=== PATIENT | male | born 1965 | race Caucasian/White ===

== ENCOUNTER 2025-06-03 07:54 | Outpatient (CLI) | payer BC, SELFPAY ==
--- NOTE | ~2025-06-03 | XR_ITS ---
Left Hand Technique: PA, oblique, and lateral views were obtained. Clinical History: Chronic pain Findings: No acute fracture or dislocation is seen. Osseous alignment is anatomic. There is advanced degenerative change of the triscaphe joint. There is moderate degenerative change of the third MCP ernestina int. Soft tissues are unremarkable. Impression: Degenerative changes, as above. Reviewed, dictated and finalized at location M. Impression: Degenerative changes, as above.
--- NOTE | ~2025-06-03 | XR_ITS ---
Right Hand Technique: PA, oblique, and lateral views were obtained. Clinical History: Pain Findings: No acute fracture or dislocation is seen. Osseous alignment is anatomic. There is advanced degenerative changes at triscaphe joint. There is moderate degenerative change of the third MCP joint . Soft tissues are unremarkable. Impression: Degenerative changes, as above. Reviewed, dictated and finalized at location . Impression: Degenerative changes, as above.
--- OUTSIDE RECORDS SUMMARY | 2025-06-03 08:02 | XMS_ITS | Continuity of Care Document ---
Author Organization [facility] Address [address] [place] [address] Phone Care Team Providers Care Canal Driver Name Role Phone Rudi Joseph MD Unavailable Unavailable Procedures Procedure Date Office/outpatient Visit, [facility] Remove Foreign Body From Eye Advance Directives Directive Yes / No Effective Date File Name No Information Encounters Encounter Description Practice Location Reason(s) For Visit Diagnoses Date Provider Providers Copied on Encounter Office/outpat ient Visit, [facility], [address], [place], [place], [id number], [place] tel:[phone] SEC Pro CHAVEZ Professional No Information 1 Jake Grijalva. [address] [facility] [place], [id number], [place]. tel:[phone] Referring Provider: Markos Rivero OD, [address], [address]. tel:[phone] Family History Family Member Type Diagnosis Age At Onset No Information Payers Payer name Insurance type Covered alliance party ID Authoriza tion(s) No Information Social History Type Description Quantity Date Captured Comments Sex Male Smoking Status No Information Chief Complaint And Reason For Visit No Information Reason For Referral Reason For Referral No Information History Of Present Illness Encounter Date Complaint History Of Prese nt Illness No Information Functional Status Date Functional Assessmen t No Information Instructions Date Instruction Additional Infor mation No Information Assessments Type Assessment Date No Information Patient Care Teams Name Effective Dates (start - stop) Status Members No Information
--- OUTSIDE RECORDS SUMMARY | 2025-06-03 08:02 | XMS_ITS | Clinical Summary ---
Author Organization [facility] [address] Address [address] [place] [address] Care Team Providers Care Dietitian Chief Name Role Phone Thiago Tse MD Unavailable [phone] Sybil Whitaker NP Unavailable [phone] Ghada Leon Primary Care Provider + Allergies No known active allergies Medications fenofibrate (TRIGLIDE) 160 mg tablet Take 1 tablet (160 mg total) by mouth daily 2 Active omeprazole (PriLOSEC) 40 mg capsule 2 Active albuterol HFA (PROVENTIL HFA,VENTOLIN HFA,PROAIR HFA) 90 mcg/actuation inhaler Inhale 2 puffs every 6 (six) hours as needed for wheezing Active venlafaxine XR (EFFEXOR-XR) 75 mg 24 hr capsuleIndicatio ns:Intractable chronic migraine with aura and without status migrainosus Take 1 capsule (75 mg total) by mouth every morning 30 capsule 3 4 Active amLODIPine (NORVASC) 5 mg tablet Take 1 tablet (5 mg total) by mouth daily Active omega 7-qgm-wej-fish oil 500-100-1,000 mg capsule Take 2,400 g by mouth Active traMADoL (ULTRAM) 50 mg tablet 4 Active modafiniL (PROVIGIL) 200 mg tablet Take 1 tablet (200 mg total) by mouth daily 30 tablet 5 Active Active Problems Problem Noted Date Diagnosed Date History of colonic polyps 09/06/2024 Encounter for screening colonoscopy 09/06/2024 Chest pain 11/02/2023 Shortness of breath 11/02/2023 Diabetes mellitus type II, non insulin dependent 11/02/2023 History of bilateral knee arthroplasty Chronic daily headache 09/16/2022 Acid reflux 05/27/2022 Left inguinal hernia 07/22/2020 Overview (07/22/2020): Added automatically from request for surgery [id number] Assessment & Plan (08/14/2020 10:32 AM CDT): No heavy lifting greater than a gal of milk for 6 weeks. Avoid straining with bowel movements. Can resume driving and light duty at work. Patient will call back with any further questions or concerns. Assessment & Plan (07/24/2020 1:42 PM CDT): I will set the patient up for left inguinal hernia repair. Risks and benefits have been explained. I have discussed the need for mesh implantation. We have discussed postoperative restrictions. Pre-admission testing will be sent in. All questions have been answered Non morbid obesity 02/04/2020 Obstructive sleep apnea 02/04/2020 Benign essential HTN 11/08/2018 Intractable chronic migraine with aura and without status migrainosus 11/08/2018 Disorder of esophagus 11/08/2018 Hypertriglyceridemia 11/08/2018 Resolved Problems Problem Noted Date Diagnosed Date Resolved Date Primary osteoarthritis of right knee 04/22/2022 06/27/2023 Overview (04/22/2022): Added automatically from request for surgery [id number] Bilateral primary osteoarthritis of knee 12/29/2021 06/27/2023 Primary osteoarthritis of left knee 09/06/2019 06/27/2023 Encounters Date Type Department Care Team Description 05/02/2025 8:15 AM CDT Office Visit [facility] [address] [facility] [address] [place] [address] Francisco Javier Newman MD LYUDMILA (obstructive sleep apnea) (Primary Dx); Hypersomnia with sleep apnea; Obesity (BMI 30.0-34.9) from Last 3 Months Surgical History Surgery Date Site/Laterality Comments HERNIA REPAIR 08/06/2020 TOTAL KNEE ARTHROPLASTY COLONOSCOPY 11/07/2024 ESOPHAGOGASTRODUODENOSCOPY Medical History Medical History Date Comments Migraines GERD (gastroesophageal reflux disease) Concussion with skull fract ure, age 7 yo LYUDMILA (obstructive sleep apnea) HTN (hypertension) HLD (hyperlipidemia) Adenomatous colon polyp Obesity Family History Medical History Relation Name Comments Cancer Father Migraines Father Asthma Mother COPD Mother Heart disease Mother Arthritis Other Cancer Other Heart disease Other Migraines Other Relation Name Status Comments Father Mother Other Social History Tobacco Use Types Packs/Day Years Used Date Smoking Tobacco: Never Smokeless Tobacco: Never Tobacco Cessation:Counseling Given: Not Answered Alcohol Use Standard Drinks/Week Comments Yes 0 (1 standard drink = 0.6 oz pur e alcohol) AUDIT-C Answer Date Recorded Q1: How often do you have a drink containing alc ohol? 2-4 times a month 05/04/2022 Q2: How many drinks containi ng alcohol do you have on a typical day when you are drinking? 1 or 2 05/04/2022 Q3: How often do you have si x or more drinks on one occasion? Never 05/04/2022 Personal Safety Answer Date Recorded Have you ever been in or are you currently in a harmful physical or emotional relationship or is someone making you feel afraid or unsafe? 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 Gender Identity Not on file Sexual Orientation Not on file Occupation Industry Job Start Date Job End Date [employer] Not on file Not on file Not on file Obstetrics History Last Filed Vital Signs Vital Sign Reading Time Taken Comments Blood Pressure 158/74 05/02/2025 8:12 AM CDT Pulse 78 05/02/2025 8:12 AM CDT Temperature 36.8 C (98.3 F) 11/07/2024 11:12 AM PIPE WASHER Respiratory Rate 16 11/07/2024 11:12 AM PIPE WASHER Oxygen Saturation 95% 05/02/2025 8:12 AM CDT Inhaled Oxygen Concentration - - Weight 101.6 kg (224 lb) 05/02/2025 8:12 AM CDT Height 177.8 cm (5' 10) 05/02/2025 8:12 AM CDT Body Mass Index 32.14 05/02/2025 8:12 AM CDT Plan of Treatment Health Maintenance Due Date Last Done Comments Albumin Creatinine Ratio, Urine 1965 Hepatitis C Screening 1965 Prostate Cancer Screening-PSA 1965 Dilated Eye Exam 1965 Foot Exam 1965 Lipid Panel 1965 Hepatitis B Screening 02/04/1982 Regular Well Visit/Exam 18-64 02/04/1982 Pneumococcal vaccine <65 (1 of 2 - PCV) 02/04/1983 Zoster Vaccine (1 of 2) 02/04/2014 Depression Screening 03/22/2019 03/22/2018, 03/22/20 18 Hemoglobin A1C 10/22/2022 04/22/2022 eGFR 02/22/2025 02/23/2024, 04/22, 04/22/2022, Additional history exists Influenza Vaccine (Season Ended) 2025 DTaP/Tdap/Td Vaccine (2 - Td or Tdap) 07/08/2030 07/08/2020 Colon Cancer Screening-Colonoscopy 11/07/2034 11/07/2024 Colon Cancer Screening-CT Colonography Discontinued 11/07/2024 Colon Cancer Screening-DNA Stool Discontinued 11/07/20 Colon Cancer Screening-FIT Discontinued 11/07/2024 Colon Cancer Screening-Sigmoidoscopy Discontinued 11/07/2024 Medical Devices Implanted Type Area Financial Reporting Manager Device Identifier Shelf Expiration Date Model / Serial / Lot [employer] [id number] [id number] Self Fixate Flat Sheet Mesh Surgical Vivian Pet Latex Free - [id number] Implanted:Qty: 1 on 08/06/2020 by Dilan Fish MD at [facility] Left: Inguinal [employer] 10/20/2022 [id number] / / [id number] [employer] Attune Cemented Posterior Stabilize Knee Left 7 Component Femoral [id number] - Sn/A - [id number] Implanted:Qty: 1 on 05/12/2022 by Thiago Tse MD at [facility] [employer] [id number] 02/19/2032 [id number] / N/A / [id number] Description:Left knee [employer] Attune 7mm Posterior Stabilize Fix Bearing Knee 7 Insert Tibial [id number] - Sn/A - [id number] Implanted:Qty: 1 on 05/12/2022 by Thiago Tse MD at [facility] [employer] [id number] 02/18/2027 [id number] / N/A / [id number] [employer] Attune S+ Cement Fix Bearing Knee 6 Baseplate Tibial [id number] - [id number] Implanted:Qty: 1 on 05/12/2022 by Thiago Tse MD at [facility] Right: Knee [employer] 03/20/2032 [id number] / / [id number] [employer] Attune Cemented Posterior Stabilize Knee Right 7 Component [id number] - [id number] Implanted:Qty: 1 on 05/12/2022 by Thiago Tse MD at [facility] Right: Knee [employer] 04/20/2032 [id number] / / [id number] [employer] Cement Bone Simplex Gentamicin High Viscosity 40 6195-1-001 - [id number] Implanted:Qty: 1 on 05/12/2022 by Thiago Tse MD at [facility] Right: Knee [employer] 08/20/2023 6195-1-001 / / [id number] [employer] Cement Bone Simplex Gentamicin High Viscosity 40 6195-1-001 - [id number] Implanted:Qty: 1 on 05/12/2022 by Thiago Tse MD at [facility] Right: Knee [employer] 10/20/2023 6195-1-001 / / [id number] [employer] Attune 7mm Posterior Stabilize Fix Bearing Knee 7 Insert Tibial [id number] - [id number] Implanted:Qty: 1 on 05/12/2022 by Thiago Tse MD at [facility] Right: Knee [employer] 02/18/2027 [id number] / / [id number] [employer] Cement Bone Simplex Gentamicin High Viscosity 40 6195-1-001 - Sn/A - [id number] Implanted:Qty: 1 on 05/12/2022 by Thiago Tse MD at [facility] [employer] [id number] 10/20/2023 6195-1-001 / N/A / [id number] [employer] Cement Bone Simplex Gentamicin High Viscosity 40gm 6195-1-001 - Sn/A - [id number] Implanted:Qty: 1 on 05/12/2022 by Thiago Tse MD at [facility] [employer] [id number] 10/20/2023 6195-1-001 / N/A / [id number] [employer] Attune S+ Cement Fix Bearing Knee 6 Baseplate Tibial [id number] - Sn/A - [id number] Implanted:Qty: 1 on 05/12/2022 by Thiago Tse MD at [facility] [employer] C1776 03/20/2032 [id number] / N/A / [id number] Description:Left knee Procedures Procedure Name Priority Date/Time Associated Diagnosis Comments COLONOSCOPY 11/07/2024 9:47 AM PIPE WASHER EGFR STAT 02/23/2024 4:32 PM CDT HEMOGLOBIN A1C Routine 04/22/2022 9:51 AM CDT Pre-operative exam from Last 3 Months or Most Recently Relevant to Health Maintenance Results * Colonoscopy (11/07/2024 9:47 AM PIPE WASHER) Anatomical Region Laterality Modality Other Narrative Procedure Note Tomas Britt, DO - 11/07/2024 9:47 AM CST [facility] Patient Name: Momo Tomlinson Procedure Date: 11/07/2024 9:47 AM Date of : 1965 Admit Type: Outpatient Age: 59 Gender: Male Attending MD: Tomas Britt D.O. Room: [facility] RO[facility] 3 Note Status: Finalized Patient Profile: Refer to note in patient chart for documentation of history and physical. Procedure: Colonoscopy Indications: High risk colon cancer surveillance: Personalhistory of colonic polyps, Last colonoscopy: September2020 Referring MD: Ghada Leon PA-C Providers: Tomas Britt D.O. Impression: - The examined portion of the ileum was normal. - One 3 mm polyp in the proximal rectum, removedwith a cold snare. Resected and retrieved. - The examination was otherwise normal on directand retroflexion views. Recommendation: - Discharge patient to home. - Resume previous diet. - Continue present medications. - Await pathology results. - Repeat colonoscopy in 5 years for surveillance. - Return to primary care physician PRN. Medicines: Monitored Anesthesia Care Complications: No immediate complications. Estimated Blood Loss: Estimated blood loss was minimal. Procedure: Pre-Anesthesia Assessment: - As per anesthesia. The benefits, risks and alternatives of theprocedure and sedation were discussed and informed consentwas obtained. All questions were answered. Please referto the signed informed consent document in the medical record. The bowel preparation used was Miralax and bisacodyl tablets via split dose instruction. The scope was passed under direct vision. TheColonoscope [id number] was introduced through the anus and advanced to the 5 cm into the ileum. Theterminal ileum, ileocecal valve, appendiceal orifice, and rectum were photographed. The colonoscopy was performed without difficulty. The patient tolerated the procedure well. The quality of the bowel preparation was adequate. Findings: The perianal and digital rectal examinations were normal. The terminal ileum appeared normal. A 3 mm polyp was found in the proximal rectum. The polyp was removed with a cold snare. Resection and retrieval were complete. The exam was otherwise without abnormality on direct and retroflexion views. Electronically signed by Tomas Britt M.D. Tomas Britt D.O. 11/07/2024 10:48:06 AM Number of Addenda: 0 Note Initiated On: 11/07/2024 9:47 AM Procedure Code(s): --- Professional --- 73863, Colonoscopy, flexible; with removal of tumor(s), polyp(s), or other lesion(s) by snare technique --- Technical --- 12992, Colonoscopy, flexible; with removal of tumor(s), polyp(s), or other lesion(s) by snare technique Diagnosis Code(s): --- Professional --- Z86.010, Personal history of colonic polyps D12.8, Benign neoplasm of rectum --- Technical --- Z86.010, Personal history of colonic polyps D12.8, Benign neoplasm of rectum CPT copyright 202 [employer]. All rights reserved. The codes documented in this report are preliminary and upon cook dinner reviewmay be revised to meet current compliance requirements. Recognized by the [place] [employer] for promoting quality in endoscopy Tomas Britt DO ENDOSCOPY PROCEDURES Final Res ult * eGFR (02/23/2024 4:32 PM CDT) eGFR >90 >=60 mL/min/1. 73 m2 Comment: Interpretive Data Reference Interval Normal >/= 90 mL/min/1.73m2 Mildly decreased* 60 - 89 mL/min/1.73m2 Mildly to moderately decreased 45 - 59 mL/min/1.73m2 Moderately to severely decreased 30 - 44 mL/min/1.73m2 Severely decreased 15 - 29 mL/min/1.73m2 Kidney Failure < 15 mL/min/1.73m2 *Relative to young adult level Estimated glomerular filtration rate is determined by the 2020 CKD-EPI equation recommended by the National Kidney Foundation (A Unifying Approach to GFR Estimation: Recommendations of the NKF-ASK Task Force on Reassessing the Inclusion of Race in Diagnosing Kidney Disease, JASN 2020). The CKD-EPI equation should not be used for patients with unstable renal function and has not been validated in children and those over 70. Current interpretive data was last reviewed 2021. Blood 02/23/2024 4:32 PM CDT 02/23/2024 4:35 PM CDT us Ana Lilia Clinton MD LAB BLOOD ORDERABLE S Final Result Performing Organization Address [facility] Co de Phone Number [facility] ([place]) [address] [facility] [employer] [address] * (ABNORMAL) Hemoglobin A1c (04/22/2022 9:51 AM CDT) Hgb A1C 6.2(H) 4.0 - 5.6 % [facility] ([place]) Estimated Average Glucose 131 mg/dL [facility] ([place]) Comment: The ADA recommends reporting an estimated Average Glucose (eAG) with all Hemoglobin A1c results using the equation derived from a study of 507 normal and diabetic adults. Minority populations were underrepresented and children were not included. (Diabetes Care 31:1834-3196, 2008). The eAG is not equivalent to a fasting glucose. Blood 04/22/2022 9:51 AM CDT 04/22/2022 10:40 AM CDT us Thiago Tse MD LAB BLOOD ORDERABLES Fin al Result Performing Organization Address City/[facility]/ZIP Co de Phone Number [facility] ([place]) [address] [facility] [employer] [place], [place] [id number] from Last 3 Months or Most Recently Relevant to Health Maintenance Insurance [facility] H[facility]/PPO Address: [address] [address] [place] [address] [facility] Advance Directives For more information, please contact: [phone] * Full Code (Latest Code Status on File) Date Activated Date Inactivated Comments 11/07/2024 9:37 AM 11/07/2024 3:40 PM * Full Code Date Activated Date Inactivated Comments 11/07/2024 9:37 AM 11/07/2024 9:37 AM * Full Code Date Activated Date Inactivated Comments 05/12/2022 3:57 PM 05/13/2022 7:37 PM Care Teams Dietitian Chief Relationship Specialty Start Date End Date Ghada Leon PA [address] [place] [address] PCP - General Physician Dietitian Helper 04/11/23 Thiago Tse MD Surgeon Orthopedic Surgery 05/13/22 Sybil Whitaker NP [address] [place] [address] Nurse Practitioner Nurse Practitioner 07/07/22
--- OUTSIDE RECORDS SUMMARY | 2025-06-03 08:02 | XMS_ITS | Referral Summary ---
Author Organization [address] Address [address] [place] [id number] Care Team Providers Care French Edge Operator Name Role Phone Thiago Tse MD Unavailable [phone] Sybil Whitaker NP Unavailable [phone] Ghada Leon Primary Care Provider + Encounters Date Type Department Care Team Description 05/02/2025 8:15 AM CDT Office Visit [facility] [address] [place] [address] [address] [place] [address] Francisco Javier Newman MD LYUDMILA (obstructive sleep apnea) (Primary Dx); Hypersomnia with sleep apnea; Obesity (BMI 30.0-34.9) from Last 3 Months Allergies No known active allergies Medications fenofibrate [...] mg total) by mouth daily Active omega 0-xye-jks-fish oil 500-100-1,000 mg capsule Take 2,400 g [...] dependent 11/02/2023 History of bilateral knee arthroplasty 3 Chronic daily headache 09/16/2022 Acid reflux 05/27/2022 Left inguinal hernia 07/22/2020 Overview (07/22/2020): Added automatically from request for surgery [id number] Assessment & Plan (08/14/2020 10:32 AM CDT): [...] (04/22/2022): Added automatically from request for surgery [id number] Bilateral primary osteoarthritis of knee 12/29/2021 06/27/2023 Primary osteoarthritis of left knee 09/06/2019 06/27/2023 Social History Tobacco Use Types Packs/Day Years [...] on file Legal Sex Male 2:51 AM CRM FUNCTIONAL ANALYST Gender Identity Not on file Sexual Orientation Not on file Occupation Industry Job Start Date Job End Date [employer] Not on file Not on file Not on file Last Filed Vital Signs Vital Sign Reading Time Taken Comments Blood Pressure 158/74 05/02/2025 8:12 AM CDT Pulse 78 05/02/2025 8:12 AM CDT Temperature 36.8 C (98.3 F) 11/07/2024 11:12 AM CRM FUNCTIONAL ANALYST Respiratory Rate 16 11/07/2024 11:12 AM CRM FUNCTIONAL ANALYST Oxygen Saturation 95% 05/02/2025 8:12 AM CDT Inhaled Oxygen Concentration - - Weight 101.6 kg (224 lb) 05/02/2025 8:12 AM CDT Height 177.8 cm (5' 10) 05/02/2025 8:12 AM CDT Body Mass Index 32.14 05/02/2025 8:12 AM CDT Plan of Treatment Not on file Medical Devices Implanted Type Area Global Sales Executive Device Identifier Shelf Expiration Date Model / Serial / Lot [employer] Inc [id number] Progrip 11f43ub Self Fixate Flat Sheet Mesh Surgical Vivian Pet Latex Free - [id number] Implanted:Qty: 1 on 08/06/2020 by Dilan Fish MD at [facility] Left: Inguinal [employer] Inc 10/20/2022 [id number] / / [id number] [employer] Attune Cemented Posterior Stabilize Knee Left 7 Component Femoral [id number] - Sn/A - [id number] Implanted:Qty: 1 on 05/12/2022 by Thiago Tse MD at [facility] [employer] [id number] 02/19/2032 [id number] / N/A / [id number] Description:Left knee [employer] Attune 7mm Posterior Stabilize Fix Bearing Knee 7 Insert Tibial [id number] - Sn/A - [id number] Implanted:Qty: 1 on 05/12/2022 by Thiago Tse MD at [facility] [employer] [id number] 02/18/2027 [id number] / N/A / [id number] [employer] Attune S+ Cement Fix Bearing Knee 6 Baseplate Tibial [id number] - [id number] Implanted:Qty: 1 on 05/12/2022 by Thiago Tse MD at [facility] Right: Knee [employer] 03/20/2032 [id number] / / [id number] [employer] Attune Cemented Posterior Stabilize Knee Right 7 Component [id number] - [id number] Implanted:Qty: 1 on 05/12/2022 by Thiago Tse MD at [facility] Right: Knee [employer] 04/20/2032 [id number] / / [id number] [employer] Cement Bone Simplex Gentamicin High Viscosity 40 6195-1-001 - [id number] Implanted:Qty: 1 on 05/12/2022 by Thiago Tse MD at [facility] Right: Knee [employer] 08/20/2023 6195-1-001 / / [id number] [employer] Cement Bone Simplex Gentamicin High Viscosity 40 6195-1-001 - [id number] Implanted:Qty: 1 on 05/12/2022 by Thiago Tse MD at [facility] Right: Knee [employer] 10/20/2023 6195-1-001 / / [id number] [employer] Attune 7mm Posterior Stabilize Fix Bearing Knee 7 Insert Tibial [id number] - [id number] Implanted:Qty: 1 on 05/12/2022 by Thiago Tse MD at [facility] Right: Knee [employer] 02/18/2027 [id number] / / [id number] [employer] Cement Bone Simplex Gentamicin High Viscosity 40 6195-1-001 - Sn/A - [id number] Implanted:Qty: 1 on 05/12/2022 by Thiago Tse MD at [facility] [employer] [id number] 10/20/2023 6195-1-001 / N/A / [id number] [employer] Cement Bone Simplex Gentamicin High Viscosity 40 6195-1-001 - Sn/A - [id number] Implanted:Qty: 1 on 05/12/2022 by Thiago Tse MD at [facility] [employer] [facility] 10/20/2023 6195-1-001 / N/A / [id number] [employer] Attune S+ Cement Fix Bearing Knee 6 Baseplate Tibial [id number] - Sn/A - [id number] Implanted:Qty: 1 on 05/12/2022 by Thiago Tse MD at [facility] [employer] C1776 03/20/2032 [id number] / N/A / [id number] Description:Left knee Procedures Procedure Name Priority Date/Time Associated Diagnosis Comments COLONOSCOPY 11/07/2024 9:47 AM CRM FUNCTIONAL ANALYST EGFR STAT 02/23/2024 4:32 PM CDT HEMOGLOBIN A1C Routine 04/22/2022 9:51 AM CDT Pre-operative exam from Last 3 Months or Most Recently Relevant to Health Maintenance Results * Colonoscopy (11/07/2024 9:47 AM CRM FUNCTIONAL ANALYST) Anatomical Region Laterality Modality Other Narrative Procedure Note Tomas Britt, - 11/07/2024 9:47 AM CST [facility] Patient Name: Momo Tomlinson Procedure Date: 11/07/2024 9:47 AM Date of : 1965 Admit Type: Outpatient Age: 59 Gender: Male Attending MD: Tomas Britt D.O. Room: [facility] 3 Note Status: Finalized Patient [...] scope was passed under direct vision. TheColonoscope [id number] was introduced through the anus and advanced [...] 9:47 AM Procedure Code(s): --- Professional --- 21105, Colonoscopy, flexible; with removal of tumor(s), polyp(s), or other lesion(s) by snare technique --- Technical --- 46127, Colonoscopy, flexible; with removal of tumor(s), polyp(s), or other lesion(s) by snare technique Diagnosis Code(s): --- Professional --- Z86.010, Personal history of colonic polyps D12.8, Benign neoplasm of rectum --- Technical --- Z86.010, Personal history of colonic polyps D12.8, Benign neoplasm of rectum CPT copyright 2020 [employer]. All rights reserved. The codes documented in this report are preliminary and upon screen printing machine operator reviewmay be revised to meet current compliance requirements. Recognized by the [employer] for promoting quality [...] MD LAB BLOOD ORDERABLE S Final Result [facility] ([place]) [facility] Department of Laboratories [place] [id number] * (ABNORMAL) Hemoglobin A1c (04/22/2022 9:51 AM CDT) Hgb A1C 6.2(H) 4.0 - 5.6 % [facility] Estimated Average Glucose 131 mg/dL [facility] Comment: The ADA recommends reporting an estimated Average Glucose (eAG) with all Hemoglobin A1c results using the equation derived from a study of 507 normal and diabetic adults. Minority populations were underrepresented and children were not included. (Diabetes Care 31:8451-2959, 2008). The eAG is not equivalent to a fasting glucose. Blood 04/22/2022 9:51 AM CDT 04/22/2022 10:40 AM CDT us Thiago Tse MD LAB BLOOD ORDERABLES Fin al Result Performing Organization Address City/State/[facility] Co de Phone Number [facility] ([place]) [address] [facility] [place] [address] from Last 3 Months or Most Recently Relevant to Health Maintenance Insurance [facility] CHOICE PLUS [facility] Advance Directives For more information, please contact: [phone] * Full Code (Latest Code Status on File) Date Activated Date Inactivated Comments 11/07/2024 9:37 AM 11/07/2024 3:40 PM * Full Code Date Activated Date Inactivated Comments 11/07/2024 9:37 AM 11/07/2024 9:37 AM * Full Code Date Activated Date Inactivated Comments 05/12/2022 3:57 PM 05/13/2022 7:37 PM Care Teams French Edge Operator Relationship Specialty Start Date End Date Ghada Leon PA [address] [place] [address] PCP - General Physician [employer] Field Technician 04/11/23 Thiago Tse MD Surgeon Orthopedic Surgery 05/13/22 Sybil Whitaker NP [address] [place] [address] Nurse Practitioner Nurse Practitioner 07/07/22
--- OUTSIDE RECORDS SUMMARY | 2025-06-03 08:02 | XMS_ITS | Clinical Summary ---
Author Organization [facility] Address [address], [facility] [address] [place] [address] Phone Care Team Providers Care Chief Projectionist Name Role Phone Destin Andujar DO Primary Care Provider [phone] Yun Torres APRN, PICKLING TANK OPERATOR Unavailable [phone] Allergies No known active allergies Medications fenofibrate micronized (LOFIBRA) 67 MG Capsule daily. 5 Active lisinopril (PRINIVIL, ZESTRIL) 20 MG Tablet daily. 5 Active omeprazole (PRILOSEC) 40 MG CAPSULE DELAYED RELEASE daily. 5 Active butalbital-acet aminophen-caffe ine-codeine (FIORICET WITH CODEINE) 55-892-02-30 MG Capsule Take 1 Cap by mouth every 4 hours as needed for Headaches. Active Galcanezumab-gn lm (EMGALITY SC) by Subcutaneous route. Active DOK 100 MG Capsule TK ONE C PO BID FOR 14 DAYS 0 Active losartan (COZAAR) 100 MG Tablet 4 Active [place] 3 1000 MG Capsule Take 2 g by mouth. Active traMADol (ULTRAM) 50 MG Tablet 4 Active Active Problems Problem Noted Date Diagnosed Date LYUDMILA (obstructive sleep apnea) 02/04/2020 Non morbid obesity 02/04/2020 Benign essential HTN 02/04/2020 Family History Medical History Relation Name Comments Arthritis Brother Cancer Father leukemia Migraines Father Osteoarthritis Father Rashes/Skin Problems Father Hypertension Mother Relation Name Status Comments Brother Father Mother Alive Social History Tobacco Use Types Packs/Day Years Used Date Smoking Tobacco: Never Smokeless Tobacco: Never Tobacco Cessation:Counseling Given: No Alcohol Use Standard Drinks/Week Comments Yes 0 (1 standard drink = 0.6 oz pur e alcohol) occassional Sex and Gender Information Value Date Recorded Sex Assigned at Not on file Legal Sex Male 9:49 PM CDT Gender Identity Not on file Sexual Orientation Not on file Occupation Industry Job Start Date Job End Date [employer] Not on file Not on file Not on file Last Filed Vital Signs Vital Sign Reading Time Taken Comments Blood Pressure 110/80 02/04/2020 10:14 AM CDT Pulse 68 02/04/2020 10:14 AM CDT Temperature 36.5 C (97.7 F) 02/04/2020 10:14 AM CDT Respiratory Rate 18 02/04/2020 10:14 AM CDT Oxygen Saturation 95% 02/04/2020 10:14 AM CDT Inhaled Oxygen Concentration - - Weight 95.1 kg (209 lb 9.6 oz) 02/04/2020 10:14 AM CDT Height 177.8 cm (5' 10) 02/04/2020 10:14 AM CDT Body Mass Index 30.07 02/04/2020 10:14 AM CDT Plan of Treatment Health Maintenance Due Date Last Done Comments Hepatitis C Virus (HCV) Screening 1965 Cologuard 02/04/2009 Immunochemical Fecal Occult Blood 02/04/2009 Pneumococcal Immunization (5 0+ years) (1 of 1 - PCV) 02/04/2014 Zoster Immunization (1 of 2) 02/04/2014 SARS-COV-2 Immunization ( - season) 2024 Colonoscopy 11/26/2024 11/26/2019, 10/22/2015 Colorectal Cancer Screening 11/26/2024 Influenza Immunization (#1) 2025 Respiratory Syncytial Virus (RSV) Immunization (Adult) (1 - 1-dose 75+ series) 02/04/2039 PSA Discussion Completed 10/07/2016 DTaP/Tdap/Td Immunization Discontinued 07/08/2020 TdaP Immunization Completed 07/08/2020 Hepatitis B Immunization Aged Out No longer eligible based on patient's age to complete this topic Human Papillomavirus (HPV) Immunization Aged Out No longer eligible based on patient's age to complete this topic Meningococcal Immunization (ACWY) Aged Out No longer eligible based on patient's age to complete this topic Rotavirus Immunization Aged Out No lo nger eligible based on patient's age to complete this topic Procedures Procedure Name Priority Date/Time Associated Diagnosis Comments PSA SCREEN Routine 10/07/2016 3:50 PM TEACHER ASSOCIATE Encounter for screening for malignant neoplasm of prostate from Last 3 Months or Most Recently Relevant to Health Maintenance Results * PSA SCREEN (10/07/2016 3:50 PM TEACHER ASSOCIATE) PSA SCREEN, TOTAL 0.32 0.00 - 4.00 ng/mL 10/07/2016 8:35 PM TEACHER ASSOCIATE [facility] Blood specimen (specimen) Venipuncture / Unknown 10/07/2016 3:50 PM TEACHER ASSOCIATE 10/07/2016 7:43 PM TEACHER ASSOCIATE Narrative [facility] - 10/07/2016 8:35 PM TEACHER ASSOCIATE PSA NOTE: The PSA value should be used in conjunction with information available from clinical evaluation and other diagnostic procedures. Bony Blackwell MD CHEMISTRY ORDERABLES Fi nal Result [facility] [address] [place] [address] from Last 3 Months or Most Recently Relevant to Health Maintenance Insurance [facility] Care Teams Chief Projectionist Relationship Specialty Start Date End Date Destin Andujar DO [address] [place] [address] PCP - General Machine Repairer 11/23/19 Yun Torres APRN, PICKLING TANK OPERATOR [address] [place] [address] Nurse Practitioner Advanced Practice Nurse 10/24/24
== END 2025-06-03 07:55 | disposition home or self-care (01) ==
LOC: CHSIMG 08:00
PROVIDERS: Visit Provider Orthopaedic Surgery
DX: M79.642 Pain in left hand (principal); M79.641 Pain in right hand
CPT/HCPCS: 73130

== ENCOUNTER 2025-07-04 01:25 | Day surgery (SDC) | payer BC, SELFPAY ==
[2025-06-26 09:25] VITALS: BMI 33.0
--- NOTE | 2025-06-26 09:33 | PC.NURSE ---
Report to the Outpatient Waiting Room, entrance under the green pavilion located off [facility], at time _1130_ on date _[id number]_. Planned Procedure Time: _130pm_.? Time changes happen often and if your time is changed the preop area will call you the afternoon before. - You and your visitor will be asked to self-screen and do not enter if you have any COVID symptoms. Please call surgeon if you need to reschedule. - A mask is optional within the hospital at this time. Patients may have clear liquids (water, carbonated beverages, clear teas, apple juice) until 3 hours prior to surgery with a maximum of 20 ounces. - No food from midnight until time of surgery and no smoking, or chewing tobacco (or any form of nicotine). No chewing gum, candy or mints. Take only the following medications with a SIP of water on the morning of surgery: ___Venlafaxine and Amlodipine____ DO NOT STOP ANY OF YOUR OTHER PRESCRIPTION MEDICATIONS PRIOR TO SURGERY EXCEPT THE FOLLOWING Hold all vitamins and supplements for 3 days per anesthesiologist. Medications to discontinue per physician Date to take last ubhg___[phone]___ Please no make-up, nail yi, hairspray, perfume, deodorant, or body powder the day of surgery.? No jewelry (including any body piercings) or valuables the day of surgery, leave them at home.? Please take a shower or bath the night before, or the morning of, surgery with an antibacterial soap.? Wear comfortable, loose fitting clothing.? - Jewelry must be removed prior to entering the operating room.? Rings and piercings that are not removed may be cut off. - The hospital will not accept responsibility for valuables.? - Please leave all valuables, including medications, at home the day of surgery. If you are going home after surgery, a licensed batch mixing truck driver must drive you home.? - NO public transportation without another adult if you receive anesthesia. - We recommend that an adult stay with you for 24 hours following discharge. - We also recommend that you do not drive, make important decision, drink alcoholic beverages, or take any drugs that were not prescribed by your health care provider for at least 24 hours after your discharge time. Follow any additional instructions given to you from your surgeon. Telephone instructions given to __Marco and his daughter__and asked if any additional questions and then verbalized understanding. Patient advised to call surgeon office or pre surgery nurse liaison [phone] if any additional questions.
--- NOTE | 2025-07-03 15:34 | P.HP_ITS ---
H&P: HPI History of Present Illness Date/Time: 07/03/25 15:34 Chief Complaint: Right carpal tunnel syndrome Narrative: 60-year-old with right hand pain, numbness and tingling. EMG confirms carpal tunnel. His failed conservative treatment is indicated for surgical release. Review of Systems Constitutional: Constitutional: Reports no additional constitutional complaints Eyes: Eyes: Reports no additional eye complaints ENT: Reports system reviewed and no additional complaints, except as documented Cardiovascular: Cardiovascular: Reports no additional cardiovascular complaints Respiratory: Respiratory: Reports no additional respiratory complaints Gastrointestinal: Gastrointestinal: Reports no additional gastrointestinal complaints Musculoskeletal: Musculoskeletal: Reports no additional musculoskeletal complaints Neurologic: Reports system reviewed and no additional complaints, except as documented Psychiatric: Psychiatric: Reports no additional psychiatric complaints Endocrine: Endocrine: Reports no additional endocrine complaints Hematologic/Lymphatic: Hematologic/Lymphatic: Reports no additional hematologic/lymphatic complaints Allergic/Immunologic: Allergic/Immunologic: Reports no additional allergic/immunologic complaints [facility] Past Medical History Medical History High cholesterol High blood pressure LYUDMILA (obstructive sleep apnea) Left carpal tunnel syndrome Right carpal tunnel syndrome Family History Family History Unknown Arthritis Cancer Social History Social History Smoking status: Never smoker Alcohol intake: current Alcohol use details: occasionally Substance use: never Living arrangements: with family Occupation/Education: occupation Additional occupation/education comments: [employer] Gender identity (if verbalized by the patient): Male Spiritual care concerns: No Meds Home Medications and Allergies Home Medications ?Medication ?Instructions ?Recorded ?Confirmed ?Type amlodipine 5 mg tablet 5 mg PO DAILY 06/10/25 06/26/25 History fenofibrate 160 mg tablet 160 mg PO DAILY 06/10/25 06/26/25 History losartan 100 mg tablet 100 mg PO DAILY 06/10/25 06/26/25 History multivitamin with minerals-folic 1 tablet PO DAILY 06/10/25 06/26/25 History acid 120 mcg chewable tablet (Centrum Adult 50 Plus Fresh-Fruity) omega 8-hvn-spo-fish oil 60 mg-90 1 cap PO DAILY 06/10/25 06/26/25 History mg-500 mg capsule (Fish Oil) omeprazole 40 mg capsule,delayed 40 mg PO DAILY 06/10/25 06/26/25 History release venlafaxine 75 mg capsule,extended 75 mg PO DAILY 06/10/25 06/26/25 History release 24 hr Allergies Allergy/AdvReac Type Severity Reaction Status Date / Time No Known Allergies Allergy Unverified 06/26/25 09:24 Exam Const: General: cooperative, healthy appearing, no acute distress, well developed and alert; No confusion Orientation/consciousness: No confusion HENMT: Head: normal to inspection, normocephalic and atraumatic Eyes: Conjunctivae: conjunctivae normal Sclera: sclerae normal Neck: Neck: supple and nontender Chest: Chest palpation & inspection: normal inspection of the chest Resp: Effort & Inspection: normal respiratory effort and no audible wheezes Cardio: Rate: regular rate Rhythm: regular rhythm : General: Yes deferred Skin: General skin exam: no rashes or lesions noted Neuro: General: No confusion Motor exam (neuro): Normal motor muscle tone present throughout Sensory Exam: Sensory deficit (Neuro) (decreased sensation to light touch thumb, index, middle and radial ring lonnie) and Upper extremity sensory exam abnormal Deep tendon reflexes (DTR's): Right triceps reflex int ensity grade: 2+, Left triceps reflex intensity grade: 2+, Rt Biceps (C5, C6): 2+, Left biceps reflex intensity grade: 2+, Right brachioradialis reflex intensity grade: 2+ and Left brachioradialis reflex intensity grade: 2+ Extrem: General: capillary refill normal Right upper extremity: normal to inspection, full ROM, normal capillary refill and wrist normal vascular exam ( ), radial pulse present and normal Rangel's test; Tinel's positive ( positive median nerve compression test. Positive Tinel's) and Phalen's positive Left upper extremity: normal to inspection and wrist normal vascular exam, radial pulse present and normal Rangel's test; Tinel's positive ( positive median nerve compression test. Positive Tinel's) and Phalen's positive Right lower extremity: normal to inspection and hip/thigh Details: normal to inspection Left lower extremity: hip/thigh Details: tenderness, swelling and abnormal ROM and ankle (no calf tenderness) Psych: Affect: normal affect Assessment and Plan Assessment and plan (1) Right carpal tunnel syndrome: Code(s): G56.01 - Carpal tunnel syndrome, right upper limb Status: Acute Assessment and Plan: Discussed nonoperative and operative treatment options with the patient. Risks and benefits of each as well as alternatives were reviewed. All of the patient's questions were answered. The risks of surgery reviewed including but not limited to: Neurovascular damage, wound complication, infection, blood clot, pulmonary embolus, stroke, myocardial infarction, and anesthetic risks up to and including . Continued pain and possible dysfunction were explained. Specific risks of the procedure including later recurrence of deformity. No guarantees were offered.. If complications occur, the patient understands the need for further treatment, possible further surgery. Patient verbalizes understanding and wishes to proceed. PLAN: Right carpal tunnel release
[2025-07-04] VITALS (8 sets, daily range): BP systolic 133–158; BP diastolic 77–106; PULSE 58–88; RESP 14–20; TEMP 36.4–36.7; O2SAT 94–99
--- OUTSIDE RECORDS SUMMARY | 2025-07-04 01:27 | XMS_ITS | Clinical Summary ---
Author Organization [facility] Address [address], [facility] [address] [place] [address] Phone Care Team Providers Care Marker Shipments Name Role Phone Destin Andujar DO Primary Care Provider [phone] Yun Torres APRN, CRITICAL CARE PHYSICIAN Unavailable [phone] Allergies No known active allergies Medications fenofibrate micronized (LOFIBRA) 67 MG Capsule daily. 5 Active lisinopril (PRINIVIL, ZESTRIL) 20 MG Tablet daily. 5 Active omeprazole (PRILOSEC) 40 MG CAPSULE DELAYED RELEASE daily. 5 Active butalbital-acet aminophen-caffe ine-codeine (FIORICET WITH CODEINE) 29-864-28-30 MG Capsule Take 1 Cap by mouth every 4 hours as needed for Headaches. Active Galcanezumab-gn lm (EMGALITY SC) by Subcutaneous route. Active DOK 100 MG Capsule TK ONE C PO BID FOR 14 DAYS 0 Active losartan (COZAAR) 100 MG Tablet 4 Active [place] 3 1000 MG Capsule Take 2 g [...] Comments PSA SCREEN Routine 10/07/2016 3:50 PM TRAILER TANK TRUCK DRIVER Encounter for screening for malignant neoplasm of prostate from Last 3 Months or Most Recently Relevant to Health Maintenance Results * PSA SCREEN (10/07/2016 3:50 PM TRAILER TANK TRUCK DRIVER) PSA SCREEN, TOTAL 0.32 0.00 - 4.00 ng/mL 10/07/2016 8:35 PM TRAILER TANK TRUCK DRIVER [facility] Blood specimen (specimen) Venipuncture / Unknown 10/07/2016 3:50 PM TRAILER TANK TRUCK DRIVER 10/07/2016 7:43 PM TRAILER TANK TRUCK DRIVER Narrative [facility] - 10/07/2016 8:35 PM TRAILER TANK TRUCK DRIVER PSA NOTE: The PSA value should be used in conjunction with information available from clinical evaluation and other diagnostic procedures. Bony Blackwell MD CHEMISTRY ORDERABLES Fi nal Result [facility] [address] [place] [address] from Last 3 Months or Most Recently Relevant to Health Maintenance Insurance [facility] Care Teams Marker Shipments Relationship Specialty Start Date End Date Destin Andujar DO [address] [place] [address] PCP - General Medical Services Manager 11/23/19 Yun Torres APRN, CRITICAL CARE PHYSICIAN [address] [place] [address] Nurse Practitioner Advanced Practice Nurse 10/24/24
--- OUTSIDE RECORDS SUMMARY | 2025-07-04 01:27 | XMS_ITS | Clinical Summary ---
Author Organization [facility] [address] Address [address] [place] [id number] Care Team Providers Care Biomedical Scientist Name Role Phone Thiago Tse MD Unavailable [phone] Sybil Whitaker NP Unavailable [phone] Ghada Leon Primary Care Provider + Allergies No known active allergies Medications fenofibrate (TRIGLIDE) 160 mg tablet Take 1 tablet (160 mg total) by mouth daily 12/16/19 22 Active omeprazole (PriLOSEC) 40 mg capsule 02/02/20 22 Active albuterol HFA (PROVENTIL HFA,VENTOLIN HFA,PROAIR HFA) 90 mcg/actuation inhaler Inhale 2 puffs every 6 (six) hours as needed for wheezing Active venlafaxine XR (EFFEXOR-XR) 75 mg 24 hr capsuleIndicati ons:Intractable chronic migraine with aura and without status migrainosus Take 1 capsule (75 mg total) by mouth every morning 30 capsule 3 04/20/20 24 Active amLODIPine (NORVASC) 5 mg tablet Take 1 tablet (5 mg total) by mouth daily Active omega 0-tpw-nfy-fish oil 500-100-1,000 mg capsule Take 2,400 g by mouth Active traMADoL (ULTRAM) 50 mg tablet 08/23/20 24 Active modafiniL (PROVIGIL) 200 mg tabletIndicatio ns:Hypersomnia with sleep apnea Take 1 tablet (200 mg total) by mouth 2 (two) times a day 60 tablet 06/11/20 25 025 Active modafiniL (PROVIGIL) 200 mg tablet Take 1 tablet (200 mg total) by mouth daily 30 tablet 05/02/20 25 025 Discontinued Active Problems Problem Noted Date Diagnosed Date History of colonic polyps 09/06/2024 Encounter for screening colonoscopy 09/06/2024 Chest pain 11/02/2023 Shortness of breath 11/02/2023 Diabetes mellitus type II, non insulin dependent 11/02/2023 History of bilateral knee arthroplasty Chronic daily headache 09/16/2022 Acid reflux 05/27/2022 Left inguinal hernia 07/22/2020 Overview (07/22/2020): Added automatically from request for surgery [id number] Assessment & Plan (08/14/2020 10:32 AM CDT): [...] (04/22/2022): Added automatically from request for surgery [id number] Bilateral primary osteoarthritis of knee 12/29/2021 06/27/2023 Primary osteoarthritis of left knee 09/06/2019 06/27/2023 Encounters Date Type Department Care Team Description 06/27/2025 8:13 AM CDT - 06/27/2025 11:59 PM CDT Hospital Encounter [facility] [address] [place] [address] Hypertension complications Discharge Disposition: Discharge to home or self care 05/02/2025 8:15 AM CDT Office Visit [facility] [address] [facility] [address] [place] [phone] Francisco Javier Newman MD LYUDMILA (obstructive sleep [...] on file Legal 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 Gender Identity Not on file Sexual Orientation Not on file Occupation Industry Job Start Date Job End Date [employer] Not on file Not on file Not on file Obstetrics History Last Filed Vital Signs Vital Sign Reading Time Taken Comments Blood Pressure 158/74 05/02/2025 8:12 AM CDT Pulse 78 05/02/2025 8:12 AM CDT Temperature 36.8 C (98.3 F) 11/07/2024 11: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 Respiratory Rate 16 11/07/2024 11: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 Oxygen Saturation 95% 05/02/2025 8:12 AM CDT [...] 04/22, 04/22/2022, Additional history exists Influenza Vaccine (#1) 2025 DTaP/Tdap/Td Vaccine (2 - Td or Tdap) 07/08/2030 07/08/2020 Colon Cancer Screening-Colonoscopy 11/07/2034 11/07/2024 Colon Cancer Screening-CT Colonography Discontinued 11/07/2024 Colon Cancer Screening-DNA Stool Discontinued 11/07/20 24 Colon Cancer Screening-FIT Discontinued 11/07/2024 Colon Cancer Screening-Sigmoidoscopy Discontinued 11/07/2024 Medical Devices Implanted Type Area Safe Deposit Box Rental Clerk Device Identifier Shelf Expiration Date Model / Serial / Lot [employer] [id number] Progrip [id number] Self Fixate Flat Sheet Mesh Surgical Vivian Pet Latex Free - [id number] Implanted:Qty: 1 on 08/06/2020 by Dilan Fish MD at [facility] Left: Inguinal [employer] 10/20/2022 [id number] / / [id number] [employer] Attune Cemented Posterior Stabilize Knee Left 7 Component Femoral [id number] - Sn/A - [id number] Implanted:Qty: 1 on 05/12/2022 by Thiago Tse MD at [facility] [employer] C1776 02/19/2032 [id number] / N/A / [id number] Description:Left knee [employer] Attune 7mm Posterior Stabilize Fix Bearing Knee 7 Insert Tibial [id number] - Sn/A - [id number] Implanted:Qty: 1 on 05/12/2022 by Thiago Tse MD at [facility] [employer] C1776 02/18/2027 [id number] / N/A / [id number] [employer] Attune S+ Cement Fix Bearing Knee 6 Baseplate Tibial [id number] - [id number] Implanted:Qty: 1 on 05/12/2022 by Thiago Tse MD at [facility] Right: Knee [employer] 03/20/2032 [id number] / / [id number] [employer] Attune Cemented Posterior Stabilize Knee Right 7 Component [id number] - [id number] Implanted:Qty: 1 on 05/12/2022 by Thiago Tse MD at [facility] Right: Knee [employer] 04/20/2032 [id number] / / [id number] [employer] Cement Bone Simplex Gentamicin High Viscosity 40 6195-1-001 - [id number] Implanted:Qty: 1 on 05/12/2022 by Thiago Tse MD at [facility] Right: Knee [employer] 08/20/2023 6195-1-001 / / [id number] [employer] Cement Bone Simplex Gentamicin High Viscosity 40 6195-1-001 - [id number] Implanted:Qty: 1 on 05/12/2022 by Thiago Tse MD at [facility] Right: Knee [employer] 10/20/2023 6195-1-001 / / [id number] [employer] Attune 7mm Posterior Stabilize Fix Bearing Knee 7 Insert Tibial [id number] - [id number] Implanted:Qty: 1 on 05/12/2022 by Thiago Tse MD at [facility] Right: Knee [employer] 02/18/2027 [id number] / / [id number] [employer] Cement Bone Simplex Gentamicin High Viscosity 40gm 6195-1-001 - Sn/A - [id number] Implanted:Qty: 1 on 05/12/2022 by Thiago Tse MD at [facility] [employer] C1713 10/20/2023 6195-1-001 / N/A / [id number] [employer] Cement Bone Simplex Gentamicin High Viscosity 40gm 6195-1-001 - Sn/A - [id number] Implanted:Qty: 1 on 05/12/2022 by Thiago Tse MD at [facility] [employer] C1713 10/20/2023 6195-1-001 / N/A / [id number] [employer] Attune S+ Cement Fix Bearing Knee 6 Baseplate Tibial [id number] - Sn/A - [id number] Implanted:Qty: 1 on 05/12/2022 by Thiago Tse MD at [facility] [employer] C1776 03/20/2032 [id number] / N/A / [id number] Description:Left knee Procedures Procedure Name Priority Date/Time Associated Diagnosis Comments ECG 12-LEAD Routine 06/27/2025 8:25 AM CDT Hypertension complications COLONOSCOPY 11/07/2024 9:47 AM AUTO BODY MECHANIC APPRENTICE EGFR STAT 02/23/2024 4:32 PM CDT HEMOGLOBIN A1C Routine 04/22/2022 9:51 AM CDT Pre-operative exam from Last 3 Months or Most Recently Relevant to Health Maintenance Results * ECG 12 lead (06/27/2025 8:25 AM CDT) 06/27/2025 8:22 AM CDT Narrative [facility] - 06/27/2025 3:30 PM CDT Vent Rate: 55 bpm RR Interval: 1081 msec OR Interval: 194 msec QRS Duration: 96 msec QT Interval: 399 msec QTC Interval: 388 msec P-R-T [place]: 15 - -16 - 29 degrees IMPRESSION: SINUS BRADYCARDIA BORDERLINE ECG NO CHANGE FROM PREVIOUS TRACING NOTED Electronically Signed By: Leandro Sarah MD us Bony Campoverde MD ECG ORDERABLES Final Result [facility] * Colonoscopy (11/07/2024 9:47 AM AUTO BODY MECHANIC APPRENTICE) Anatomical Region Laterality Modality Other Narrative Procedure Note Tomas Britt, - 11/07/2024 9:47 AM CST [facility] Patient Name: Momo Tomlinson Procedure Date: 11/07/2024 9:47 AM Date of : 1965 Admit Type: Outpatient Age: 59 Gender: Male Attending MD: Tomas Britt D.O. Room: [facility] ENDOSCOPY ROOM 3 Note Status: Finalized Patient [...] scope was passed under direct vision. TheColonoscope [id number] was introduced through the anus and advanced [...] 9:47 AM Procedure Code(s): --- Professional --- 22756, Colonoscopy, flexible; with removal of tumor(s), polyp(s), or other lesion(s) by snare technique --- Technical --- 40880, Colonoscopy, flexible; with removal of tumor(s), polyp(s), or other lesion(s) by snare technique Diagnosis Code(s): --- Professional --- Z86.010, Personal history of colonic polyps D12.8, Benign neoplasm of rectum --- Technical --- Z86.010, Personal history of colonic polyps D12.8, Benign neoplasm of rectum CPT copyright 2020 [employer]. All rights reserved. The codes documented in this report are preliminary and upon makeup instructor reviewmay be revised to meet current compliance requirements. Recognized by the [place] [employer] for promoting quality in endoscopy us Tomas Britt DO ENDOSCOPY PROCEDURES Final Res [...] MD LAB BLOOD ORDERABLE S Final Result [facility] [place]) [address] [facility] Department [place] [address] * (ABNORMAL) Hemoglobin A1c (04/22/2022 9:51 AM CDT) Hgb A1C 6.2(H) 4.0 - 5.6 % [facility] Estimated Average Glucose 131 mg/dL [facility] Comment: The ADA recommends reporting an estimated Average Glucose (eAG) with all Hemoglobin A1c results using the equation derived from a study of 507 normal and diabetic adults. Minority populations were underrepresented and children were not included. (Diabetes Care 31:9424-8058, 2008). The eAG is not equivalent to a fasting glucose. Blood 04/22/2022 9:51 AM CDT 04/22/2022 10:40 AM CDT Thiago Tse MD LAB BLOOD ORDERABLES Fin al Result Performing Organization Address City/State/[facility] Phone Number [facility] [address] [facility] Department [place] [address] from Last 3 Months or Most Recently Relevant to Health Maintenance Insurance [facility] [employer] [employer] [place] Advance Directives For more information, please contact: [phone] * Full Code (Latest Code Status on File) Date Activated Date Inactivated Comments 11/07/2024 9:37 AM 11/07/2024 3:40 PM * Full Code Date Activated Date Inactivated Comments 11/07/2024 9:37 AM 11/07/2024 9:37 AM * Full Code Date Activated Date Inactivated Comments 05/12/2022 3:57 PM 05/13/2022 7:37 PM Care Teams Biomedical Scientist Relationship Specialty Start Date End Date Ghada Leon PA [address] [place] [address] PCP - General Physician Stone Crusher Operator 04/11/23 Thiago Tse MD Surgeon Orthopedic Surgery 05/13/22 Sybil Whitaker NP [address] [place] [address] Nurse Practitioner Nurse Practitioner 07/07/22
--- NOTE | 2025-07-04 08:24 | WPDHPUPDATE1 ---
History and Physical Update Update Date/Time: 07/04/25 08:24 History and Physical has been reviewed, including an updated exam of the patient. There are NO changes in the patient's condition. Risks, benefits, and alternatives have been discussed and questions answered. Patient agrees to proceed with procedure.
[2025-07-04] MEDS: LACTATED RINGERS 1,000 ML 30 ML IV CONT (10:48)
--- NOTE | 2025-07-04 11:43 | P.PNAN_ITS ---
Anes - Initial Pre Proc Eval Procedure: Operation Date: 07/04/25 12:30 Proposed Procedures p Right Carpal Tunnel Release - Osmani Temple MD Date/Time: 07/04/25 11:43 Surgeon: Osmani Temple MD Pre Op Diagnosis: Right Carpal Tunnel syndrome Patient Data Age: 60 Gender: M Height: 1.78 m Weight: 104.5 kg Allergies Allergy/AdvReac Type Severity Reaction Status Date / Time No Known Allergies Allergy Unverified 07/04/25 10:44 Home Medications ?Medication ?Instructions ?Recorded ?Confirmed ?Type amlodipine 5 mg tablet 5 mg PO DAILY 06/10/25 07/04/25 History fenofibrate 160 mg tablet 160 mg PO DAILY 06/10/25 07/04/25 History losartan 100 mg tablet 100 mg PO DAILY 06/10/25 07/04/25 History multivitamin with minerals-folic 1 tablet PO DAILY 06/10/25 07/04/25 History acid 120 mcg chewable tablet (Centrum Adult 50 Plus Fresh-Fruity) omega 8-qzm-nmh-fish oil 60 mg-90 1 cap PO DAILY 06/10/25 07/04/25 History mg-500 mg capsule (Fish Oil) omeprazole 40 mg capsule,delayed 40 mg PO DAILY 06/10/25 07/04/25 History release venlafaxine 75 mg capsule,extended 75 mg PO DAILY 06/10/25 07/04/25 History release 24 hr Patient hx anesthesia problems: none Family hx anesthesia problems: none Results Review: All pre-operative results and documents have been reviewed as part of the pre- operative evaluation. [facility] Past Medical History Medical History High cholesterol High blood pressure LYUDMILA (obstructive sleep apnea) Left carpal tunnel syndrome Right carpal tunnel syndrome Family History Family History Unknown Arthritis Cancer Social History Social History Smoking status: Never smoker Alcohol intake: current Alcohol use details: occasionally Substance use: never Living arrangements: with family Occupation/Education: occupation Additional occupation/education comments: [employer] Gender identity (if verbalized by the patient): Male Spiritual care concerns: No Anes - Eval Final PreProcedure Day of Procedure 07/04/25 11:43 Patient weight: obese Heart: regular rate and rhythm Lungs: clear to auscultation Airway: Mallampati scale class III Neurological: alert and oriented Last oral intake: >/= 8 hours ASA classification: III Emergent: no Anesthetic plan: proceed Anesthesia type and monitoring: general LMA and standard monitoring Results Review: All pre-operative results and documents have been reviewed as part of the pre- operative evaluation. Informed Consent: The patient's anesthetic plan and its attendant risks and benefits were discussed with the patient/family/POA. Questions were solicited and answers provided to the satisfaction of the patient/family/POA.
[2025-07-04] MEDS: ACETAMINOPHEN 500 MG TABLET 1000 MG PO (11:47)
[2025-07-04] MEDS: KETOROLAC 15 MG/ML VIAL (*BKC) IV PUSH (11:48)
[2025-07-04] MEDS: ceFAZolin 2 GM in SODIUM CHLORIDE 0.9% IV 50 ML 100 ML IVPB (11:57)
[2025-07-04] MEDS: BUPIVACAINE/EPINEPHRINE 0.5% 50 ML VIAL 30 ML INFILTRATE (11:57)
--- NOTE | 2025-07-04 12:00 | P.OP_ITS ---
Procedure Note - Detailed Date of Procedure 07/04/25 Pre-op Diagnosis Right Carpal Tunnel syndrome Post-op Diagnosis Same Procedure Performed Right carpal tunnel release. Surgeon Osmani Temple MD Anesthesiologist Attending clinical laboratory assistant Anesthesia General Indications The patient has history, exam findings, and electrodiagnostic findings consistent with carpal tunnel syndrome. Conservative treatment with bracing/ splinting, activity modifications, medication, ergonomics, injections has failed. Symptoms are daily and affect ability to use hand. The patient desires operative treatment. Description of Procedure After informed consent was given, the operative extremity was marked in the preoperative holding area. Intravenous antibiotics were given. The patient was taken to the operating room and underwent general anesthesia by the anesthesia team. A time-out was performed confirming patient, procedure, and operative site. Local infiltrate at the carpal tunnel was done with 0.5% marcaine. Prepping and draping was done using chloraprep skin solution with usual surgical sterile technique. Anatomic landmarks marked on skin. Hand was exsanguinated and arm tourniquet inflated to 225mmHg. Incision was made with #15 blade knife in skin crease on volar palm. Hemostasis was achieved with electrocautery. Careful dissection was carried down to the transverse carpal ligament. Retractors were placed. Ligament overlying median nerve was incised in line with skin incision using [place] blade. Proximal and distal release was done with metzenbaum scissors under direct visualization. Mosquito clamp was placed deep to ligament to protect nerve during release. The nerve was inspected and noted to be intact with mild flattening. Tendons had good excursion. The tourniquet was then released and pressure held. Bleeding points were coagulated with bipolar cautery. The wound was thoroughly irrigated with antibiotic solution. The skin was closed with 4-0 nylon interrupted suture. A sterile dressing was applied. Good capillary refill in the fingers and thumb was noted. The patient was transported to the recovery room in stable condition. All sponge, needle, instrument counts were correct at the end of the case. Estimated Blood Loss 2 Tourniquet Time Total Tourniquet Time: 6 Drains No Packing No Pathology None sent Complications None Condition Stable Disposition PACU [facility] Billing Surgery - Charge Forward: Surgery Billing ([id number])
== END 2025-07-04 14:27 | disposition home or self-care (01) ==
PROVIDERS: Visit Provider Orthopaedic Surgery
PROC: (CPT 64721; principal; 2025-07-04 12:30)
DX: G56.01 Carpal tunnel syndrome, right upper limb (principal); I10 Essential (primary) hypertension; G47.33 Obstructive sleep apnea (adult) (pediatric); E78.00 Pure hypercholesterolemia, unspecified; E66.9 Obesity, unspecified; Z68.33 Body mass index [BMI] 33.0-33.9, adult; Z80.9 Family history of malignant neoplasm, unspecified
CPT/HCPCS: 64721; J0690; A9270; J1100; J1885; J2003; J2250; J2405; J2704; J3010; J7120